=== PATIENT | male | born 1980 | race Caucasian/White ===

== ENCOUNTER 2017-11-29 15:19 | Emergency (ER) | payer BC, OTHER ==
[2017-11-29 16:50] LABS: ABS Basophils 0 10^3/ul (0-0.2); ABS Eosinophils 0.1 10^3/ul (0-0.6); ABS Lymphocytes 1.2 10^3/ul (1.0-4.8); ABS Monocytes 0.6 10^3/ul (0-0.8); ABS Nucleated RBC 0 10^3/ul; Eosinophil % 1.3 % (0-6); Hematocrit 43 % (42-52); Hemoglobin 15.2 g/dl (14.0-18.0); Lymphocyte % 20.2 % (25-47); Mean Corpuscular HGB Conc 36 g/dl (31-36); Mean Corpuscular Hemoglobin 33 pg (27-31); Mean Corpuscular Volume 94 fL (80-94); Mean Platelet Volume 6.8 um3 (7.4-10.4); Nucleated Red Blood Cells % 0.1; Platelet Count 184 10^3/ul (150-450); Red Blood Count 4.56 10^6/ul (4.0-5.4); Red Cell Distribution Width 13 % (10.5-15); White Blood Count 5.9 10^3/ul (3.5-10.8)
[2017-11-29] MEDS ORDERED: Ketorolac INJ* 30 MG/ML 1 ML VIAL IV PUSH ONE (16:56)
[2017-11-29 17:12] LABS: EGFR Non-African American 77.8 (>60)
--- NOTE | 2017-11-29 17:30 | RAD ---
. INDICATION: Chest pain. Single frontal view of the chest performed at 1703 hours was reviewed. No prior study is available for comparison. No mediastinal shift is noted. Heart is of normal size and configuration. Lung horn appear clear. IMPRESSION: NO ACTIVE CARDIOPULMONARY DISEASE IS NOTED.
[2017-11-29 18:51] VITALS: BP 125/72
--- NOTE | 2017-12-01 11:50 | ED ---
Armaan Kraus Angela, scribed for Delonte Nguyen MD on 11/29/17 at 1705 . HPI Chest Pain - HPI Summary HPI Summary: This pt is a 37 y/o male presenting to [facility] c/o chest pain that began at approx 15:00 today. 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 He notes his chest pain is located on the left lateral side, underneath his left armpit. His pain is worse with deep breathing. At onset he rates his pain 8 out of 10 in severity. Pt additionally notes nausea, SOB, dizziness, and cold left arm. Denies vomiting, rash, fever, abd pain, back pain. Currently he rates his pain 7/10 in severity. Pt has never had this pain before. Denies alcohol and drug use. No PMHx. FHx: heart disease. - History of Current Complaint Chief Complaint: EDChestWallPain Time Seen by Provider: 11/29/17 16:50 Hx Obtained From: Patient Onset/Duration: Started Hours Ago, Atraumatic, Still Present Timing: Lasting Hours Current Severity: Moderate Pain Intensity: 7 Pain Scale Used: 0-10 Numeric Chest Pain Location: Left Lateral Chest Pain Radiates: No Character: Dull/Aching Aggravating Factor(s): Deep Breaths Alleviating Factor(s): Nothing Associated Signs and Symptoms: Positive: Chest Pain, Dizziness, Shortness of Breath, Nausea. Negative: Fever, Chills, Back Pain, Vomiting, Other: - rash - Allergy/Home Medications Allergies/Adverse Reactions: Allergies Allergy/AdvReac Type Severity Reaction Status Date / Time Penicillins Allergy Hives Verified 11/29/17 15:29 PMH/Surg Hx/FS Hx/Imm Hx Endocrine/Hematology History: Denies: Hx Diabetes Cardiovascular History: Denies: Hx Hypertension Infectious Disease History: No Infectious Disease History: Denies: Traveled Outside the [place] in Last 30 Days - Family History Known Family History: Positive: Cardiac Disease - Social History Alcohol Use: None Substance Use Type: Reports: None Smoking Status (MU): Never Smoked Tobacco Review of Systems Negative: Fever, Chills Eyes: Negative ENT: Negative Positive: Chest Pain Positive: Nausea. Negative: Vomiting Negative: Rash Neurological: Other - POS: dizziness All Other Systems Reviewed And Are Negative: Yes Physical Exam - Summary Physical Exam Summary: VITAL SIGNS: Reviewed. GENERAL: Patient is a well-developed and nourished male who is lying comfortable in the stretcher. Patient is not in any acute respiratory distress. HEAD AND FACE: No signs of trauma. No ecchymosis, hematomas or skull depressions. No sinus tenderness. EYES: PERRLA, EOMI x 2, No injected conjunctiva, no nystagmus. EARS: Hearing grossly intact. Ear canals and tympanic membranes are within normal limits. MOUTH: Oropharynx within normal limits. NECK: Supple, trachea is midline, no adenopathy, no JVD, no carotid bruit, no c- spine tenderness, neck with full ROM. CHEST: Symmetric, reproducible chest pain at palpation. LUNGS: Clear to auscultation bilaterally. No wheezing or crackles. CVS: Regular rate and rhythm, S1 and S2 present, no murmurs or gallops appreciated. ABDOMEN: Soft, non-tender. No signs of distention. No rebound no guarding, and no masses palpated. Bowel sounds are normal. EXTREMITIES: FROM in all major joints, no edema, no cyanosis or clubbing. NEURO: Alert and oriented x 3. No acute neurological deficits. Speech is normal and follows commands. SKIN: Dry and warm Triage Information Reviewed: Yes Vital Signs On Initial Exam: Initial Vitals Temp Pulse Resp BP Pulse Ox 98 F 106 18 127/76 98 11/29/17 15:26 11/29/17 15:26 11/29/17 15:26 11/29/17 15:26 11/29/17 15:26 Vital Signs Reviewed: Yes Diagnostics - Vital Signs Vital Signs Temp Pulse Resp BP Pulse Ox 11/29/17 15:26 98 F 106 18 127/76 98 - Laboratory Lab Results: Lab Results 11/29/17 11/29/17 Range/Units 16:44 16:44 WBC 5.9 (3.5-10.8) 10^3/ul RBC 4.56 (4.0-5.4) 10^6/ul Hgb 15.2 (14.0-18.0) g/dl Hct 43 (42-52) % MCV 94 (80-94) fL MCH 33 H (27-31) pg MCHC 36 (31-36) g/dl RDW 13 (10.5-15) % Plt Count 184 (150-450) 10^3/ul MPV 6.8 L (7.4-10.4) um3 Neut % (Auto) 68.1 (38-83) % Lymph % (Auto) 20.2 L (25-47) % [place] % (Auto) 9.7 H (0-7) % Eos % (Auto) 1.3 (0-6) % Baso % (Auto) 0.7 (0-2) % Absolute Neuts (auto) 4.0 (1.5-7.7) 10^3/ul Absolute Lymphs (auto) 1.2 (1.0-4.8) 10^3/ul Absolute Monos (auto) 0.6 (0-0.8) 10^3/ul Absolute Eos (auto) 0.1 (0-0.6) 10^3/ul Absolute Basos (auto) 0 (0-0.2) 10^3/ul Absolute Nucleated RBC 0 10^3/ul Nucleated RBC % 0.1 D-Dimer, Quantitative < 200 (Less Than 230) ng/mL Result Diagrams: 11/29/17 16:44 11/29/17 16:44 Lab Statement: Any lab studies that have been ordered have been reviewed, and results considered in the medical decision making process. - Radiology Chest XR Xray Interpretation: No Acute Changes - IMPRESSION: No active cardiopulmonary disease is noted. Dr. Nguyen has reviewed this radiology report. Radiology Interpretation Completed By: Radiologist - EKG 15:26 Cardiac Rate: NL - at 88 bpm EKG Rhythm: Sinus Rhythm EKG Interpretation: No ST elevations. Re-Evaluation - Re-Evaluation First Eval Re-Evaluation Time: 17:50 Comment: I reviewed lab and XR results with the pt. He will be discharged home. Chest Pain Course/Dx - Course Assessment/Plan: Pt is a 37 y/o male who presents with chest pain that began at approx 15:00 today. 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 He notes his chest pain is located on the left lateral side, underneath his left armpit. His pain is worse with deep breathing. At onset he rates his pain 8 out of 10 in severity. Pt additionally notes nausea, SOB, dizziness, and cold left arm. Denies vomiting, rash, fever, abd pain, back pain. Currently he rates his pain 7/10 in severity. Test results without any significant abnormalities. Troponin is 0.00. D-dimer is less than 200. Chest XR shows no active cardiopulmonary disease. EKG is normal sinus rhythm without ST elevations. In the ED course the pt was given Toradol and his pain resolved. Therefore I believe the pt is not having any acute coronary syndrome or PE. Since the pts pain is reproducible he will be discharged home with follow up from PCP. He will be given a prescription for naproxen. I discussed all the findings and test results with the patient. All questions were answered to patient satisfaction. There were no further complaints or concerns. She is instructed to return to the ED for any worsening or new symptoms. Pt is hemodynamically stable, alert and oriented x3. - Diagnoses Provider Diagnoses: Atypical chest pain Discharge - Sign-Out/Discharge Documenting (check all that apply): Discharge/Admit/Transfer - Discharge - Discharge Plan Condition: Stable Disposition: HOME Prescriptions: Naproxen [Naproxen 500 mg tab] 500 mg PO BID PRN #20 tablet PRN Reason: Pain Patient Education Materials: Chest Pain (ED) Referrals: [facility] – [place] PHYSICIAN REFERRAL [Outside] Additional Instructions: Please establish a primary care provider and follow up. RETURN TO THE ED FOR ANY NEW OR WORSENING SYMPTOMS. The documentation as recorded by the Armaan boyle Angela accurately reflects the service I personally performed and the decisions made by me, Delonte Nguyen MD.
== END 2017-11-29 18:52 | disposition home or self-care (01) ==
LOC: ED 15:19
DX: R07.89 Other chest pain (principal); R06.02 Shortness of breath; R11.0 Nausea; R42 Dizziness and giddiness; Z88.0 Allergy status to penicillin; Z82.49 Family history of ischemic heart disease and other diseases of the circulatory system
CPT/HCPCS: 36415; 71045; 80053; 83605; 84484; 85025; 85379; 93005; 96374; 99283; J1885